=== PATIENT | male | born 1935 | race Caucasian/White ===

== ENCOUNTER → 2016-06-07 | Outpatient (CLI) | payer MEDICARE, OTHER ==
[~2016-06-07] MED LIST: 00186-0370-20 IH; ALBUTEROL0.83 MG/ML IH; ASPIRIN 81M81 MG/TA2 PO; CALCIUM CITRATE1 TA7 PO; CARDURA 8MG TAB8 MG PO; DOXYCYCLINE HY100 MG; FISH OIL1000 MG PO; GLUCOPHAGE500 MG/TAB PO; K-DUR 10 MEQ T10 MEQ PO; LASIX 40MG TABL40 MG PO; LASIX 80MG TABL80 MG PO; OMEGA 31000 MG PO; POTASSIUM CHLO10 ME2 PO; PRILOSEC 20MG20 MG PO; PROVENTIL0.09 MG/A1 IH; RT SPIRIVA18 MCG IH; SYNTHROID0.125 MG/T PO; THEO-24 20200 MG/CAP PO; TRADJENTA5 MG PO; XOPENEX 3 ML3 M1 IH; ZOCOR 20MG20 MG PO
== END ==
LOC: WCC 10:00
DX: I87.8 Other specified disorders of veins (principal); L97.919 Non-pressure chronic ulcer of unspecified part of right lower leg with unspecified severity; I83.91 Asymptomatic varicose veins of right lower extremity
CPT/HCPCS: 17717; A6212; G0463

== ENCOUNTER → 2016-06-15 | Outpatient (CLI) | payer MEDICARE, OTHER | LOC: WCC 09:50 | DX: I87.8 Other specified disorders of veins (principal); L97.919 Non-pressure chronic ulcer of unspecified part of right lower leg with unspecified severity | CPT/HCPCS: G0463 ==

== ENCOUNTER → 2016-06-22 | Outpatient (CLI) | payer MEDICARE, OTHER | LOC: WCC 08:49 | DX: I87.8 Other specified disorders of veins (principal); L97.519 Non-pressure chronic ulcer of other part of right foot with unspecified severity | CPT/HCPCS: 27510; A6197; G0463 ==

== ENCOUNTER → 2016-06-29 | Outpatient (CLI) | payer MEDICARE, OTHER | LOC: WCC 08:34 | DX: I87.2 Venous insufficiency (chronic) (peripheral) (principal); I83.893 Varicose veins of bilateral lower extremities with other complications; L97.909 Non-pressure chronic ulcer of unspecified part of unspecified lower leg with unspecified severity | CPT/HCPCS: 21064; A6021; G0463 ==

== ENCOUNTER → 2016-07-06 | Outpatient (CLI) | payer MEDICARE, OTHER | LOC: WCC 09:19 | DX: I87.8 Other specified disorders of veins (principal); L97.919 Non-pressure chronic ulcer of unspecified part of right lower leg with unspecified severity | CPT/HCPCS: 21064; A6021; G0463 ==

== ENCOUNTER → 2016-07-13 | Outpatient (CLI) | payer MEDICARE, OTHER | LOC: WCC 08:41 | DX: I87.8 Other specified disorders of veins (principal); L97.919 Non-pressure chronic ulcer of unspecified part of right lower leg with unspecified severity | CPT/HCPCS: 21064; A6021; G0463 ==

== ENCOUNTER → 2016-07-20 | Outpatient (CLI) | payer MEDICARE, OTHER | LOC: WCC 09:50 | DX: I83.893 Varicose veins of bilateral lower extremities with other complications (principal); I87.2 Venous insufficiency (chronic) (peripheral) | CPT/HCPCS: G0463 ==

== ENCOUNTER → 2016-07-27 | Outpatient (CLI) | payer MEDICARE, OTHER | LOC: WCC 11:21 | DX: I73.9 Peripheral vascular disease, unspecified (principal); I87.8 Other specified disorders of veins | CPT/HCPCS: G0463 ==

== ENCOUNTER → 2016-08-04 | Outpatient (CLI) | payer MEDICARE, OTHER | LOC: COL.VAS 09:31 | DX: I83.028 Varicose veins of left lower extremity with ulcer other part of lower leg (principal) ==

== ENCOUNTER 2016-08-24 06:43 | Outpatient (CLI) | payer MEDICARE, OTHER ==
[~2016-08-24] VITALS: Ht 172.8 cm; Wt 92.0 kg
[2016-08-24] VITALS (9 sets, daily range): BP systolic 105–157; BP diastolic 63–98; PULSE 65–93; TEMP 98.4
[~2016-08-24 06:43] MED LIST changes: -ALBUTEROL0.83 MG/ML IH; -CALCIUM CITRATE1 TA7 PO; -DOXYCYCLINE HY100 MG; -FISH OIL1000 MG PO; -K-DUR 10 MEQ T10 MEQ PO; -PRILOSEC 20MG20 MG PO; -THEO-24 20200 MG/CAP PO; -TRADJENTA5 MG PO
[2016-08-24 08:13] LABS: HEMATOCRIT 43.1 % (42.0-52.0); HEMOGLOBIN 14.3 g/dl (13.5-18.0)
[2016-08-24 08:15] LABS: PROTHROMBIN TIME 11.5 SECONDS (9.7-12.8)
[2016-08-24] MEDS ORDERED: ALBUTEROL0.83 MG/ML IH (08:16)
[2016-08-24] MEDS ORDERED: CALCIUM CITRATE1 TA7 PO (08:18)
[2016-08-24] MEDS ORDERED: FISH OIL1000 MG PO (08:19)
[2016-08-24] MEDS ORDERED: PRILOSEC 20MG20 MG PO (08:31)
[2016-08-24] MEDS ORDERED: K-DUR 10 MEQ T10 MEQ PO (08:32)
[2016-08-24] MEDS ORDERED: THEO-24 20200 MG/CAP PO (08:35)
[2016-08-24] MEDS ORDERED: TRADJENTA5 MG PO (08:35)
[2016-08-24] MEDS ORDERED: DOXYCYCLINE HY100 MG (14:03)
== END 2016-08-24 14:28 | disposition home or self-care (01) ==
LOC: EUO 06:43 → COL.VAS 07:00 → EUO 07:00
PROVIDERS: Radiology Diagnostic Radiology
DX: I83.011 Varicose veins of right lower extremity with ulcer of thigh (principal); I83.018 Varicose veins of right lower extremity with ulcer other part of lower leg; L97.819 Non-pressure chronic ulcer of other part of right lower leg with unspecified severity
CPT/HCPCS: C1769; C1894; J2250; J3010; J3370; J7040; J7050; J7120

== ENCOUNTER → 2016-08-31 | Outpatient (CLI) | payer MEDICARE, OTHER ==
[~2016-08-31] MED LIST changes: +ALBUTEROL0.83 MG/ML IH; +CALCIUM CITRATE1 TA7 PO; +DOXYCYCLINE HY100 MG; +FISH OIL1000 MG PO; +K-DUR 10 MEQ T10 MEQ PO; +PRILOSEC 20MG20 MG PO; +THEO-24 20200 MG/CAP PO; +TRADJENTA5 MG PO
== END ==
LOC: COL.VAS 11:47
DX: I82.491 Acute embolism and thrombosis of other specified deep vein of right lower extremity (principal); Z98.890 Other specified postprocedural states